=== PATIENT | male | born 1930 | race Caucasian/White ===

== ENCOUNTER 2018-10-29 13:13 | Day surgery (SDC) | payer OTHER, BC ==
[2018-10-29] MEDS ORDERED: GLUCAGON 1 MG INJ (16:05)
[2018-10-29] MEDS ORDERED: PROPOFOL 40 ML (16:13)
== END 2018-10-29 17:38 | disposition home or self-care (01) ==
LOC: GIL 13:13
DX: D12.5 Benign neoplasm of sigmoid colon (principal); D12.3 Benign neoplasm of transverse colon; E11.9 Type 2 diabetes mellitus without complications; I10 Essential (primary) hypertension; Z79.82 Long term (current) use of aspirin
CPT/HCPCS: 45385; 82962; 88305